=== PATIENT | male | born 1980 | race Caucasian/White ===

== ENCOUNTER 2022-07-16 20:55 | Observation (INO) | payer OTHER, BC ==
[2022-07-16 21:37] LABS: Hemoglobin 14.6 g/dL (14.0-18.0); Mean Corpuscular HGB CONC 33.7 g/dL (32.0-36.0); Mean Corpuscular Hemoglobin 31.4 pg (27.0-31.0); Mean Corpuscular Volume 93.3 fl (78.0-98.0); Mean Platelet Volume 8.5 fL (7.4-10.4); Platelet Count 144 10x3/uL (130-400); RBC Distribution Width 13.4 % (11.5-14.5); Red Blood Cell (RBC) Count 4.64 mill/uL (4.70-6.10); White Blood Cell (WBC) Count 6.1 10x3/uL (4.8-10.8)
[2022-07-16 21:45] LABS: ALT (SGPT) 11 U/L (8-55); AST (SGOT) 19 U/L (5-34); Albumin 4.2 g/dL (3.5-5.0); Alcohol Less than 10 mg/dL (Less than 10); Alkaline Phosphatase 74 U/L (40-110); Anion Gap 14 mmol/L (10-20); BUN (Urea Nitrogen) 12 mg/dL (8.9-20.6); Bilirubin, Total 0.5 mg/dL (0.2-1.2); CK (CPK) 44 U/L (30-200); Calc. Creatinine Clearance 0 mL/min (70-130); Calcium 9.1 mg/dL (7.8-10.44); Carbon Dioxide 19 mmol/L (22-29); Chloride 107 mmol/L (98-107); Estimated GFR 109; Globulin 2.9 g/dL (2.4-3.5); Glucose 107 mg/dL (70-105); Potassium 3.9 mmol/L (3.5-5.1); Protein, Total 7.1 g/dL (6.0-8.3); Sodium 136 mmol/L (136-145)
[2022-07-16 21:46] LABS: Acetaminophen Less than 10.0 mcg/mL (10.0-30.0); Alcohol Less than 10 mg/dL (Less than 10); Salicylate Less than 8.0 mg/dL (15.0-30.0)
[2022-07-16] MEDS ORDERED: Morphine 4 MG/ML VIAL ONE (21:46)
[2022-07-16 21:47] LABS: Prothrombin Time 13.3 sec (12.0-14.7)
[2022-07-16 21:52] LABS: PTT 22.6 sec (22.9-36.1)
[2022-07-16 22:03] LABS: Band 2 % (5-11); Lymphocytes 36 % (21-51); MDiff Complete? YES; Monocytes 9 % (0-10); Neutrophil 44 % (42-75); Platelet Morphology Comment Appears Adequate; RBC Morphology Normal; Reactive Lymphocytes 9 % (0-10)
[2022-07-16] MEDS ORDERED: Ketamine 50 MG/ML (10ML VIAL) ONE (22:51)
[2022-07-16] MEDS ORDERED: Ondansetron ODT 4 MG TAB PO PRN (23:42)
[2022-07-16] MEDS ORDERED: Morphine 2 MG/ML VIAL SLOW IVP PRN (23:42)
[2022-07-16] MEDS ORDERED: traMADol HCl 50 MG TAB PO PRN ×2 (23:42)
[2022-07-16] MEDS ORDERED: Dextrose 5% in Water 1,000 ML IV PRN (23:42)
[2022-07-16] MEDS ORDERED: Ondansetron PF 4 MG/2 ML Vial IVP PRN (23:42)
[2022-07-16] MEDS ORDERED: Dextrose 50% Abboject 50 ML SYRINGE SLOW IVP PRN (23:42)
[2022-07-16] MEDS ORDERED: TETANUS, DIPHTHERIA TOX,ADULT (TDVAX) 0.5 ML VIAL IM ONE (23:42)
[2022-07-16] MEDS ORDERED: Ipratropium/Albuterol 3 ML NEB NEB PRN (23:42)
[2022-07-16] MEDS ORDERED: hydrALAZINE 20 MG/ML VIAL SLOW IVP PRN (23:42)
[2022-07-16] MEDS ORDERED: Sodium Chloride 0.9% 1,000 ML IV SCH (23:45)
[2022-07-17] MEDS: Acetaminophen 500 MG TAB PO SCH ×4 (01:16→17:21)
[2022-07-17] MEDS: Ketorolac Tromethamine 30 MG/ML VIAL IVP SCH ×2 (01:17→05:32)
[2022-07-17 01:57] VITALS: BMI 26.3
[2022-07-17 02:28] LABS: SARS-CoV-2 NAA Rapid Test Not Detected (NotDetected)
[2022-07-17] MEDS: Morphine 4 MG/ML VIAL SLOW IVP PRN ×3 (03:30→08:15)
[2022-07-17] MEDS ORDERED: CEFAZOLIN 2 GM in Sodium Chloride 0.9% 100 ML IVPB SCH ×2 (08:00→15:19)
[2022-07-17] MEDS ORDERED: Escitalopram Oxalate 10 mg Tablet PO SCH (09:00)
[2022-07-17] MEDS ORDERED: Senokot S 8.6-50 MG TAB PO SCH (09:00)
[2022-07-17] MEDS ORDERED: Famotidine 20 MG TAB PO SCH (09:00)
[2022-07-17] MEDS ORDERED: Polyethylene Glycol 3350 17 GM Packet PO SCH (09:00)
[2022-07-17] MEDS ORDERED: Morphine 4 MG/ML VIAL SLOW IVP PRN ×2 (09:24→09:26)
[2022-07-17] MEDS ORDERED: CEFAZOLIN 2 GM VIAL ONE (12:20)
[2022-07-17] MEDS ORDERED: Sodium Chloride 0.9% 100 ML ONE (12:20)
[2022-07-17] MEDS ORDERED: Bupivacaine PF 0.5% 30 ML VIAL ONE (12:23)
[2022-07-17] MEDS ORDERED: HYDROmorphone 0.5 MG/0.5 ML SYRINGE ONE (12:28)
[2022-07-17] MEDS ORDERED: Ondansetron PF 4 MG/2 ML Vial ONE (12:51)
[2022-07-17] MEDS ORDERED: PROPOFOL 200 MG/20 ML VIAL ONE (12:51)
[2022-07-17] MEDS ORDERED: Lidocaine 1% PF 5 ML VIAL ONE (12:51)
[2022-07-17] MEDS ORDERED: ePHEDrine 50 MG/ML VIAL ONE (12:51)
[2022-07-17] MEDS ORDERED: Dexamethasone 20 MG/5 ML VIAL ONE (12:51)
[2022-07-17] MEDS ORDERED: Ketorolac Tromethamine 30 MG/ML VIAL ONE (12:51)
[2022-07-17] MEDS ORDERED: Ibuprofen 200 MG TAB PO SCH (14:00)
[2022-07-17] MEDS ORDERED: Ibuprofen 600 MG TAB PO SCH (14:00)
[2022-07-17] MEDS ORDERED: Gabapentin 300 MG CAP PO SCH (15:00)
[2022-07-17] MEDS ORDERED: Ondansetron HCl/PF 4 MG/2 ML Vial IVP PRN (15:03)
[2022-07-17] MEDS ORDERED: Promethazine HCl 25 MG/ML VIAL IM PRN (15:03)
[2022-07-17 15:55] VITALS: BP 124/78; TEMP 97.4
[2022-07-17] MEDS ORDERED: Cyclobenzaprine 10 MG TAB PO PRN (18:10)
[2022-07-17] MEDS ORDERED: QUEtiapine 25 MG TAB PO SCH (21:00)
[2022-07-17] MEDS ORDERED: Non-Formulary Item 1 EACH (Quetiapine Fumarate [Seroquel] 50 MG Tablet) PO SCH (21:00)
== END 2022-07-17 18:45 | disposition home or self-care (01) ==
LOC: ERS 20:55 → SURG A 23:46
PROVIDERS: ADMIT Specialist; ATTEND Specialist
PROC: 01N50ZZ Release Median Nerve, Open Approach (ICD-10-PCS; principal; 2022-07-17)
PROC: 0PSH04Z Reposition Right Radius with Internal Fixation Device, Open Approach (ICD-10-PCS; 2022-07-17)
DX: S52.561A Barton's fracture of right radius, initial encounter for closed fracture (principal); G56.01 Carpal tunnel syndrome, right upper limb; S59.001A Unspecified physeal fracture of lower end of ulna, right arm, initial encounter for closed fracture; S43.004A Unspecified dislocation of right shoulder joint, initial encounter; G89.11 Acute pain due to trauma; F17.200 Nicotine dependence, unspecified, uncomplicated; Z79.899 Other long term (current) drug therapy; Z20.822 Contact with and (suspected) exposure to COVID-19; V57.5XXA Driver of pick-up truck or van injured in collision with fixed or stationary object in traffic accident, initial encounter
CPT/HCPCS: 25605; 70450; 71260; 72125; 74177; 80053; 80307; 82550; 85025; 85610; 85730; 93005; 96374; 96375; 96376; 99156; C1713; G0378; G0390; J1100; J1170; J1885; J2270; J2272; J2405; J2704; J3490; J7050; S0020; U0002

== ENCOUNTER 2022-07-18 02:37 | Emergency (ER) | payer BC ==
[2022-07-18] MEDS ORDERED: Ibuprofen 800 MG TAB ONE (03:48)
[2022-07-18] MEDS ORDERED: HYDROcodone/Acetaminophen 10/325 mg Tablet ONE (03:48)
== END 2022-07-18 04:02 | disposition home or self-care (01) ==
LOC: ERS 02:37
DX: Z47.89 Encounter for other orthopedic aftercare (principal)
CPT/HCPCS: 99282